=== PATIENT | male | born 2000 | race African-American/Black ===

== ENCOUNTER 2024-03-18 16:15 | Emergency (ER) | payer OTHER ==
[~2024-03-18] VITALS: Ht 182.9 cm; Wt 86.4 kg
[2024-03-18 16:55] VITALS: BP 149/93; PULSE 76; RESP 18; TEMP 98.8; O2SAT 99
[2024-03-18] MEDS: IBUPROFEN 400 MG TABLET PO ONE (18:01)
[2024-03-18] MEDS: ACETAMINOPHEN 325 MG TABLET PO ONE (18:01)
== END 2024-03-18 18:16 ==
LOC: EMS 16:15
DX: S90.31XA Contusion of right foot, initial encounter (principal); W18.39XA Other fall on same level, initial encounter; Y93.89 Activity, other specified; Y92.89 Other specified places as the place of occurrence of the external cause; Y99.8 Other external cause status
CPT/HCPCS: 99283